=== PATIENT | female | born 1995 | race Two or more races ===

== ENCOUNTER 2019-12-31 08:56 | Outpatient (CLI) | payer BC ==
[2019-12-31 11:34] LABS: BASOPHILS % (AUTO) 0.2 % (0.0-2.0); HEMATOCRIT 42 % (33-45); LYMPHOCYTES # (AUTO) 1.3 /CMM (0.8-4.8); LYMPHOCYTES % (AUTO) 25.8 % (20.0-44.0); MEAN CORPUSCULAR HGB CONC 33 g/dl (31.0-36.0); MEAN CORPUSCULAR VOLUME 88 fL (82-100); MONOCYTES # (AUTO) 0.3 /CMM (0.1-1.30); MONOCYTES % (AUTO) 6.2 % (2.0-12.0); NEUTROPHILS # (AUTO) 3.4 /CMM (1.8-8.9); NEUTROPHILS % (AUTO) 66.8 % (43.0-81.0); PLATELET COUNT (AUTO) 195 /CMM (150-450); RED BLOOD CELL COUNT(AUTO) 4.79 MIL/uL (4.0-5.2); WHITE BLOOD COUNT (AUTO) 5.1 K/uL (4.3-11.0)
[2019-12-31 12:04] LABS: ALBUMIN 3.7 g/dL (3.4-5.0); BILIRUBIN,TOTAL 0.3 mg/dL (0.2-1.0); CALCIUM, SERUM 8.8 mg/dL (8.5-10.1); CREATININE 0.7 mg/dL (0.6-1.3); POTASSIUM 4.3 mmol/L (3.5-5.1); TOTAL PROTEIN, SERUM 7.7 g/dL (6.4-8.2)
[2019-12-31 12:23] LABS: FREE T4 (FREE THYROXINE) 0.9 ng/dL (0.76-1.46); THYROID STIMULATING HORMONE 2.13 uIU/mL (0.358-3.74)
== END 2019-12-31 23:59 | disposition home or self-care (01) ==
LOC: US 08:56
PROVIDERS: ATTEND Family Medicine
DX: N83.201 Unspecified ovarian cyst, right side (principal); R10.2 Pelvic and perineal pain; E78.2 Mixed hyperlipidemia; R12 Heartburn; R53.83 Other fatigue
CPT/HCPCS: 36415; 76856-TC; 80053-TC; 80061-TC; 82306; 82728-TC; 83540-TC; 84439-TC; 84443-TC; 85025-TC; 86677

== ENCOUNTER 2020-01-28 09:53 | Outpatient (CLI) | payer BC | END 2020-01-28 23:59 | disposition home or self-care (01) | LOC: US 09:53 | PROVIDERS: ATTEND Family Medicine | DX: K76.0 Fatty (change of) liver, not elsewhere classified (principal); R16.2 Hepatomegaly with splenomegaly, not elsewhere classified; R10.9 Unspecified abdominal pain | CPT/HCPCS: 76700-TC ==

== ENCOUNTER 2020-02-08 08:01 | Outpatient (CLI) | payer BC ==
[2020-02-08 09:44] LABS: CALCIUM, SERUM 9.2 mg/dL (8.5-10.1); CREATININE 0.8 mg/dL (0.6-1.3); POTASSIUM 4.1 mmol/L (3.5-5.1)
[2020-02-08] MEDS ORDERED: IOHEXOL-300 100 ML VIAL IV ONE (10:03)
[2020-02-08] MEDS ORDERED: CT SWABBABLE VALVE TRANS SET 1 EA INFUS.SET MC ONE (10:04)
[2020-02-08] MEDS ORDERED: IV NS 0.9% 250 ML IV ONE (10:04)
[2020-02-10 15:17] LABS: H. PYLORI AB IgA <9.0 units (0.0-8.9)
== END 2020-02-08 23:59 | disposition home or self-care (01) ==
LOC: CT 08:01
PROVIDERS: ATTEND Family Medicine
DX: R16.2 Hepatomegaly with splenomegaly, not elsewhere classified (principal); K76.0 Fatty (change of) liver, not elsewhere classified; K44.9 Diaphragmatic hernia without obstruction or gangrene; N83.201 Unspecified ovarian cyst, right side; J98.11 Atelectasis
CPT/HCPCS: 74170; 80048; 86677 ×3; J7050; Q9967; 36415

== ENCOUNTER 2020-03-11 17:19 | Emergency (ER) | payer BC, OTHER ==
[~2020-03-11] VITALS: Ht 165.1 cm; Wt 90.7 kg
[2020-03-11 17:34] VITALS: BP 144/78
--- NOTE | 2020-03-11 17:55 | NUR ---
Patient discharged to home in stable condition. Written and verbal after care instructions given. Patient verbalizes understanding of instruction.
== END 2020-03-11 17:56 | disposition home or self-care (01) ==
LOC: ER 17:19
DX: S90.862A Insect bite (nonvenomous), left foot, initial encounter (principal); W57.XXXA Bitten or stung by nonvenomous insect and other nonvenomous arthropods, initial encounter; Y93.89 Activity, other specified; Y92.89 Other specified places as the place of occurrence of the external cause; Y99.8 Other external cause status

== ENCOUNTER 2020-04-06 10:03 | Outpatient (CLI) | payer BC, OTHER ==
[2020-04-06 11:01] LABS: APPEARANCE,URINE SL CLOUDY (CLEAR); BILIRUBIN,URINE NEGATIVE (NEGATIVE); BLOOD, URINE SMALL Ery/uL (NEGATIVE); COLOR,URINE YELLOW (YELLOW); KETONES,URINE NEGATIVE (NEGATIVE); LEUKOCYTE ESTERASE ,URINE NEGATIVE (NEGATIVE); NITRITE, URINE NEGATIVE (NEGATIVE); PH,URINE 6.5 (5.0-8.0); PROTEIN,URINE NEGATIVE (NEGATIVE); UGLUCOSE NEGATIVE (NEGATIVE); UROBILINOGEN,URINE 0.2 EU/dL (0.2)
[2020-04-06 11:23] LABS: BACTERIA,URINE Many /HPF (None Seen); SQUAMOUS EPITHELIAL CELL,UR Many /HPF (None Seen)
[2020-04-06 11:24] LABS: WBC,URINE 0-2 /HPF (0-3)
== END 2020-04-06 23:50 | disposition home or self-care (01) ==
LOC: LAB 10:03
PROVIDERS: ATTEND Family Medicine
DX: Z00.01 Encounter for general adult medical examination with abnormal findings (principal)
CPT/HCPCS: 36415; 81000-TC; 86317; 86709-TC; 86803; 87086-TC; 87340

== ENCOUNTER 2020-06-11 23:57 | Emergency (ER) | payer BC, OTHER ==
[~2020-06-11] VITALS: Ht 165.1 cm; Wt 90.7 kg
[2020-06-12] VITALS: BP 132/64
--- NOTE | 2020-06-12 00:35 | NUR ---
RING x2 REMOVED FROM LEFT 4TH DIGIT FINGER AND RETURNED TO THE PATIENT.
--- NOTE | 2020-06-12 00:42 | NUR ---
Patient discharged to home in stable condition. Written and verbal after care instructions given. Patient verbalizes understanding of instruction.
== END 2020-06-12 00:48 | disposition home or self-care (01) ==
LOC: ER 06-12 00:01
DX: S60.455A Superficial foreign body of left ring finger, initial encounter (principal); E66.8 Other obesity; Z68.33 Body mass index [BMI] 33.0-33.9, adult; W45.8XXA Other foreign body or object entering through skin, initial encounter; Y93.89 Activity, other specified; Y92.89 Other specified places as the place of occurrence of the external cause; Y99.8 Other external cause status

== ENCOUNTER 2021-03-15 08:41 | Outpatient (CLI) | payer BC ==
[2021-03-15 09:25] LABS: BASOPHILS % (AUTO) 0.3 % (0.0-2.0); EOSINOPHILS % (AUTO) 0.6 % (0.0-6.0); HEMATOCRIT 40 % (33-45); HEMOGLOBIN 13.7 g/dL (11.5-14.8); LYMPHOCYTES # (AUTO) 1.2 K/uL (0.8-4.8); LYMPHOCYTES % (AUTO) 19.8 % (20.0-44.0); MEAN CORPUSCULAR HGB CONC 34 g/dl (31.0-36.0); MEAN CORPUSCULAR VOLUME 88 fL (82-100); MONOCYTES # (AUTO) 0.3 K/uL (0.1-1.30); MONOCYTES % (AUTO) 4.4 % (2.0-12.0); NEUTROPHILS # (AUTO) 4.7 K/uL (1.8-8.9); NEUTROPHILS % (AUTO) 74.9 % (43.0-81.0); PLATELET COUNT (AUTO) 185 K/uL (150-450); RED BLOOD CELL COUNT(AUTO) 4.59 MIL/uL (4.0-5.2); WHITE BLOOD COUNT (AUTO) 6.2 K/uL (4.3-11.0)
== END 2021-03-15 23:59 | disposition home or self-care (01) ==
LOC: RAD 08:41
PROVIDERS: ATTEND Family Medicine
DX: R07.1 Chest pain on breathing (principal)
CPT/HCPCS: 36415; 71046; 85025-TC; 85378-TC

== ENCOUNTER 2021-03-15 23:12 | Emergency (ER) | payer BC ==
[~2021-03-15] VITALS: Ht 165.1 cm; Wt 90.7 kg
--- NOTE | 2021-03-15 23:31 | NUR ---
PT AAOX4. BIBSELF C/O ELEVATED D DIMER, SENT BY PMD. PLACED IN BED 16 ON SUPERVISOR DIAGNOSTIC AND PULSE OX. AWAITING ER MD FOR EVAL AND ORDERS.
--- NOTE | 2021-03-15 23:35 | NUR ---
Patient came to the ER bed 16 BIB self c/o elevated D-Dimer. Patient states that she had recently had her first dose of the Pfizer vaccine on February 28 and started having on and off chest pain thereafter. Patient was referred by PMD for seeing an elevated D-Dimer and requests to get scans. Patient is alert and oriented X4. Denies shortness of breath. Breathing evenly and unlabored on room air. Connected to the court monitor.
--- NOTE | 2021-03-15 23:55 | NUR ---
[facility]ANQU[facility] SUPERVISOR AT BEDSIDE FOR BLOOD WORK.
[2021-03-15 23:57] LABS: BASOPHILS % (AUTO) 0.4 % (0.0-2.0); EOSINOPHILS % (AUTO) 0.9 % (0.0-6.0); HEMATOCRIT 37 % (33-45); HEMOGLOBIN 12.4 g/dL (11.5-14.8); LYMPHOCYTES # (AUTO) 2.1 K/uL (0.8-4.8); LYMPHOCYTES % (AUTO) 27.3 % (20.0-44.0); MEAN CORPUSCULAR HGB CONC 33 g/dl (31.0-36.0); MEAN CORPUSCULAR VOLUME 88 fL (82-100); MONOCYTES # (AUTO) 0.5 K/uL (0.1-1.30); MONOCYTES % (AUTO) 6.7 % (2.0-12.0); NEUTROPHILS # (AUTO) 4.9 K/uL (1.8-8.9); NEUTROPHILS % (AUTO) 64.7 % (43.0-81.0); PLATELET COUNT (AUTO) 178 K/uL (150-450); RED BLOOD CELL COUNT(AUTO) 4.23 MIL/uL (4.0-5.2); WHITE BLOOD COUNT (AUTO) 7.6 K/uL (4.3-11.0)
[2021-03-16 00:06] LABS: CALCIUM, SERUM 8.4 mg/dL (8.5-10.1); CARBON DIOXIDE 28 mmol/L (21-32); CHLORIDE 105 mmol/L (98-107); CREATININE 0.5 mg/dL (0.6-1.3); GLUCOSE 93 mg/dL (74-106); POTASSIUM 3.9 mmol/L (3.5-5.1); SODIUM SERUM 141 mmol/L (136-145); UREA NITROGEN, BLOOD 21 mg/dL (7-18)
[2021-03-16 00:12] LABS: ALANINE AMINOTRANSFERASE 20 U/L (12-78); ALBUMIN 3.6 g/dL (3.4-5.0); ALKALINE PHOSPHATASE 53 U/L (46-116); ASPARTATE AMINOTRANSFERASE 16 U/L (15-37); BILIRUBIN,DIRECT 0.1 mg/dL (0.0-0.2); BILIRUBIN,TOTAL 0.2 mg/dL (0.2-1.0); TOTAL PROTEIN, SERUM 7.2 g/dL (6.4-8.2)
[2021-03-16] MEDS ORDERED: IV NS 0.9% 250 ML IV ONE (00:16)
[2021-03-16] MEDS ORDERED: IOHEXOL-350 100 ML VIAL IV ONE (00:16)
[2021-03-16] MEDS ORDERED: CT SWABBABLE VALVE TRANS SET 1 EA INFUS.SET MC ONE (00:16)
--- NOTE | 2021-03-16 00:18 | NUR ---
PATIENT IS TAKEN TO CT VIA WHEELCHAIR BY CASING GRADER
--- NOTE | 2021-03-16 00:51 | NUR ---
US AT BEDSIDE
[2021-03-16 01:12] VITALS: BP 112/78
--- NOTE | 2021-03-16 01:12 | NUR ---
IV removed. Catheter intact and site benign. Pressure and 4x4 applied to site. No bleeding noted.
--- NOTE | 2021-03-16 01:12 | NUR ---
Patient discharged to home in stable condition. Written and verbal after care instructions given. Patient verbalizes understanding of instruction.
== END 2021-03-16 01:13 | disposition home or self-care (01) ==
LOC: ER 23:14
DX: R07.89 Other chest pain (principal)
CPT/HCPCS: 36415; 71275; 80048; 80076; 84484; 85025; 85730; 93005; 93970; 99285; J7050; Q9967

== ENCOUNTER 2021-05-02 08:51 | Outpatient (CLI) | payer BC | END 2021-05-02 23:59 | disposition home or self-care (01) | LOC: LAB 08:51 | PROVIDERS: ATTEND Family Medicine | DX: R79.1 Abnormal coagulation profile (principal) | CPT/HCPCS: 36415; 85378-TC ==

== ENCOUNTER 2023-12-18 09:43 | Outpatient (CLI) | payer BC ==
[2023-12-18 11:15] LABS: BASOPHILS % (AUTO) 0.3 % (0.0-2.0); EOSINOPHILS % (AUTO) 0.6 % (0.0-6.0); HEMATOCRIT 41 % (33-45); LYMPHOCYTES # (AUTO) 0.8 K/uL (0.8-4.8); LYMPHOCYTES % (AUTO) 19.3 % (20.0-44.0); MEAN CORPUSCULAR HEMOGLOBIN 30 PG (26.0-33.0); MEAN CORPUSCULAR HGB CONC 34 g/dl (31.0-36.0); MEAN CORPUSCULAR VOLUME 88 fL (82-100); MONOCYTES # (AUTO) 0.3 K/uL (0.1-1.30); MONOCYTES % (AUTO) 7.4 % (2.0-12.0); NEUTROPHILS # (AUTO) 3.1 K/uL (1.8-8.9); NEUTROPHILS % (AUTO) 72.4 % (43.0-81.0); PLATELET COUNT (AUTO) 160 K/uL (150-450); RED BLOOD CELL COUNT(AUTO) 4.72 MIL/uL (4.0-5.2); RED CELL DISTRIBUTION WIDTH 13.2 % (11.5-15.0); WHITE BLOOD COUNT (AUTO) 4.3 K/uL (4.3-11.0)
[2023-12-19 11:07] LABS: ESTRADIOL (*R) 73.4 pg/mL (.); FOLLICLE STIMULATION HORMONE 4.2 mIU/mL (.); PROGESTERONE 0.1 ng/mL (.)
== END 2023-12-18 23:59 | disposition home or self-care (01) ==
LOC: LAB 09:43
PROVIDERS: ATTEND Family Medicine
DX: N72 Inflammatory disease of cervix uteri (principal); N92.6 Irregular menstruation, unspecified; Z97.5 Presence of (intrauterine) contraceptive device
CPT/HCPCS: 36415; 82670; 83001; 84144; 84443-TC; 85025-TC

== ENCOUNTER 2024-10-08 20:29 | Emergency (ER) | payer BC ==
[~2024-10-08] VITALS: Ht 162.6 cm; Wt 70.3 kg
[2024-10-08 20:59] VITALS: BP 124/77; TEMP 98.3; O2SAT 99
[2024-10-08] MEDS ORDERED: GUAI120L56 PO (21:07)
== END 2024-10-08 22:07 | disposition home or self-care (01) ==
LOC: ER 20:35
DX: J06.9 Acute upper respiratory infection, unspecified (principal); Z20.822 Contact with and (suspected) exposure to COVID-19

== ENCOUNTER 2024-11-21 22:04 | Emergency (ER) | payer BC ==
[~2024-11-21] VITALS: Ht 165.1 cm; Wt 91.6 kg
[~2024-11-21 22:04] MED LIST: GUAI120L56 PO
[2024-11-22 00:12] LABS: PREGNANCY TEST URINE QUAL NEGATIVE (NEGATIVE)
[2024-11-22] MEDS ORDERED: KETOROLAC TROMETHAMINE INJ 30 MG/ML VIAL ONE (01:04)
[2024-11-22] MEDS ORDERED: KETO10TA2 PO (01:06)
[2024-11-22 01:12] VITALS: BP 110/68; TEMP 98; O2SAT 99
[2024-11-22] MEDS ORDERED: KETOROLAC TROMETHAMINE INJ 30 MG/ML VIAL IM ONE (01:30)
== END 2024-11-22 01:13 | disposition home or self-care (01) ==
LOC: ER 22:07
DX: S90.111A Contusion of right great toe without damage to nail, initial encounter (principal); W22.03XA Walked into furniture, initial encounter; Y93.89 Activity, other specified; Y92.098 Other place in other non-institutional residence as the place of occurrence of the external cause; Y99.8 Other external cause status
CPT/HCPCS: 99284; 73630; 84703; J1885